=== PATIENT | male | born 1960 | race Caucasian/White ===

== ENCOUNTER → 2024-01-30 10:18 | Outpatient (REF) | payer OTHER, SELFPAY ==
[2024-01-30 11:12] VITALS: BP 146/67; BP_SYST 64
[2024-01-30 11:19] LABS: INR 0.98; PT 13.3 Sec (11.4-14.6)
[2024-01-30 12:43] VITALS: BP 145/79
== END ==
LOC: RADI 10:18
PROVIDERS: ATTENDING PHYSICIAN Neurological Surgery; FAMILY PHYSICIAN Family Medicine
DX: G91.2 (Idiopathic) normal pressure hydrocephalus (principal); D68.8 Other specified coagulation defects
CPT/HCPCS: 36415; 62328; 85610

== ENCOUNTER 2024-01-30 15:11 | Outpatient (RCR) | payer OTHER, SELFPAY | END 2024-02-02 07:06 | disposition home or self-care (01) | LOC: RPT 15:11 | PROVIDERS: ATTENDING PHYSICIAN Neurological Surgery; FAMILY PHYSICIAN Registered Nurse | DX: G91.2 (Idiopathic) normal pressure hydrocephalus (principal); Z73.6 Limitation of activities due to disability | CPT/HCPCS: 97163; 97164; 97167; 97168 ==